=== PATIENT | female | born 1980 | race Caucasian/White ===

== ENCOUNTER 2017-12-20 17:44 | Emergency (ER) | payer OTHER ==
[2017-12-20 18:45] VITALS: BP 120/68
--- NOTE | 2017-12-20 19:21 | UC ---
Throat Pain/Nasal Devonte HPI - HPI Summary HPI Summary: 37 yo female with sore throat x 5 days fever right otalgia - History of Current Complaint Chief Complaint: UCRespiratory Stated Complaint: SORE THROAT Time Seen by Provider: 12/20/17 18:46 Hx Obtained From: Patient Hx Last Menstrual Period: 12/17/17 Onset/Duration: Gradual Onset Severity: Moderate Pain Intensity: 7 Pain Scale Used: 0-10 Numeric - Allergies/Home Medications Allergies/Adverse Reactions: Allergies Allergy/AdvReac Type Severity Reaction Status Date / Time iodine Allergy Rash Verified 12/20/17 18:50 Penicillins Allergy Rash Verified 12/20/17 18:50 diphenhydramine AdvReac See Comment Verified 12/20/17 18:51 [From Benadryl] Vistaril AdvReac Intermediate feels Uncoded 12/04/17 11:38 jittery Home Medications: Home Medications Acetaminophen [Acetaminophen Extra Strength] 1,000 mg PO ONCE PRN 12/20/17 [ History Confirmed 12/20/17] PMH/Surg Hx/FS Hx/Imm Hx Previously Healthy: Yes Other History Of: Negative For: HIV, Hepatitis B, Hepatitis C, Anticoagulant Therapy - Surgical History Surgical History: Yes Surgery Procedure, Year, and Place: x 3. LAP X 4 FOR OVARIAN CYSTS AND ENDOMETRIOSIS. LEFT FOOT FUSION 2ND TOE - Family History Known Family History: Positive: Cardiac Disease - a-fib Negative: Hypertension - Social History Alcohol Use: None Substance Use Type: None Smoking Status (MU): Never Smoked Tobacco Review of Systems Constitutional: Fever Skin: Negative Eyes: Negative ENT: Sore Throat, Ear Ache Respiratory: Negative Cardiovascular: Negative Gastrointestinal: Negative Genitourinary: Negative Motor: Negative Neurovascular: Negative Musculoskeletal: Negative Neurological: Negative Psychological: Negative Is Patient Immunocompromised?: No All Other Systems Reviewed And Are Negative: Yes Physical Exam Triage Information Reviewed: Yes Appearance: No Pain Distress, Well-Nourished Vital Signs: Initial Vital Signs Temp 98.6 F 12/20/17 18:35 Pulse 72 12/20/17 18:35 Resp 16 12/20/17 18:35 BP 120/68 12/20/17 18:35 Pulse Ox 100 12/20/17 18:35 Eyes: Positive: Conjunctiva Clear ENT: Positive: Pharyngeal erythema, Other - single ulceration palate. Negative : Nasal congestion, Nasal drainage, Tonsillar swelling, Tonsillar exudate Dental Exam: Normal Neck exam: Normal Neck: Positive: 1 Respiratory Exam: Normal Respiratory: Positive: Normal breath sounds, No respiratory distress, No accessory muscle use Cardiovascular: Positive: RRR, No Murmur Musculoskeletal: Positive: ROM Intact, No Edema Neurological: Positive: Alert Psychological Exam: Normal Skin Exam: Normal Throat Pain/Nasal Course/Dx - Differential Dx/Diagnosis Provider Diagnoses: viral pharyngitis Discharge - Sign-Out/Discharge Documenting (check all that apply): Discharge - Discharge Plan Condition: Stable Disposition: HOME Patient Education Materials: Pharyngitis (ED) Referrals: Shon Love DO [Primary Care Provider] - 3 Days (recheck in 3-4 days if not better) Additional Instructions: strep test negative tylenol or advil for pain ' recheck for new or worsening symptoms - Billing Disposition and Condition Condition: STABLE Disposition: HOME
== END 2017-12-20 19:33 | disposition home or self-care (01) ==
LOC: EDUNIT# → UCCORT 17:44
DX: J02.9 Acute pharyngitis, unspecified (principal); Z88.0 Allergy status to penicillin; Z88.8 Allergy status to other drugs, medicaments and biological substances
CPT/HCPCS: 87651; 99211; G0463